=== PATIENT | female | born 1985 | race Caucasian/White ===

== ENCOUNTER 2023-09-28 15:21 | Outpatient (REF) | payer BC, SELFPAY ==
[2023-09-28 17:50] LABS: Erythrocyte Sedimentation Rate 23 MM/HR (0-20)
[2023-09-29 16:03] LABS: Lyme Abs Screen <0.90 index
[2023-10-06 11:23] LABS: Anti Nuclear Antibody Screen POSITIVE (NEGATIVE)
== END 2023-09-28 15:22 | disposition home or self-care (01) ==
LOC: HO.LAB 15:21
PROVIDERS: PCP Internal Medicine; Visit Provider Psychiatry & Neurology Neurology
DX: G44.209 Tension-type headache, unspecified, not intractable (principal)
CPT/HCPCS: 36415; 82550; 85652; 86038; 86039; 86617; 86618